=== PATIENT | male | born 1960 | race Caucasian/White ===

== ENCOUNTER 2017-10-11 14:10 | Emergency (ER) | payer OTHER ==
[2017-10-11 14:18] VITALS: BP 125/79
[2017-10-11] MEDS ORDERED: DEXAMETHASONE 10 MG/ML VIAL ONE (18:05)
[2017-10-11] MEDS ORDERED: KETOROLAC 60 MG/2 ML VIAL ONE (18:05)
[2017-10-11] MEDS ORDERED: CHERRY SYRUP 10 ML UDC PO ONE (18:05)
[2017-10-11] MEDS: DEXAMETHASONE 10 MG/ML VIAL PO STA (18:14)
[2017-10-11] MEDS: KETOROLAC 60 MG/2 ML VIAL IM STA (18:14)
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
--- NOTE | 2017-10-11 18:30 | XRAY Preliminary Report ---
Exam: XR LUMBAR SPINE 2 VIEW IMPRESSION: No acute disease. [facility] SITE ID: [id number]
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
== END 2017-10-11 18:51 | disposition home or self-care (01) ==
LOC: ED 14:10
DX: M62.830 Muscle spasm of back (principal); V53.5XXA Driver of pick-up truck or van injured in collision with car, pick-up truck or van in traffic accident, initial encounter; I10 Essential (primary) hypertension; E11.9 Type 2 diabetes mellitus without complications; E78.00 Pure hypercholesterolemia, unspecified; Z87.891 Personal history of nicotine dependence; Z79.84 Long term (current) use of oral hypoglycemic drugs
CPT/HCPCS: 72100; 96372; 99283